=== PATIENT | female | born 1975 | race Hispanic/Latino ===

== ENCOUNTER 2017-08-19 14:25 | Outpatient (CLI) | payer OTHER ==
--- NOTE | 2017-08-19 15:24 | ULT ---
RENAL SONOGRAM: DATE: 08/19/17. HISTORY: Right flank pain. FINDINGS: The kidneys demonstrate a normal sonographic appearance bilaterally without evidence of a renal mass, renal calculus, or hydronephrosis. The right kidney measures 10.2 cm x 4.3 cm with the left kidney measuring 10.3 cm x 6.1 cm. The urinary bladder is distended and demonstrates a normal sonographic appearance. Prevoid urinary b ladder volume is 398.8 mL, and there is no evidence of a postvoid residual. IMPRESSION: Normal-appearing bilateral kidneys as well as normal-appearing urinary bladder. POS: [facility]
== END 2017-08-19 14:26 | disposition home or self-care (01) ==
LOC: SCSULT 14:25
PROVIDERS: ATTEND Family Medicine
DX: R10.9 Unspecified abdominal pain (principal)
CPT/HCPCS: 76770

== ENCOUNTER 2018-03-18 13:23 | Outpatient (CLI) | payer OTHER | END 2018-03-18 13:24 | disposition home or self-care (01) | LOC: BICMAMMO 13:23 | PROVIDERS: ATTEND Family Medicine | DX: Z12.31 Encounter for screening mammogram for malignant neoplasm of breast (principal); R92.1 Mammographic calcification found on diagnostic imaging of breast; Z80.3 Family history of malignant neoplasm of breast; Z98.890 Other specified postprocedural states | CPT/HCPCS: 77063; 77067 ==

== ENCOUNTER 2018-03-30 12:42 | Inpatient (IN) | payer OTHER ==
[~2018-03-30 12:42] MED LIST: Dexamethasone 20 MG/5 ML VIAL ONE; Glycopyrrolate 0.2 MG/ML 5 ML SYRINGE ONE; Ketorolac Tromethamine 30 MG/ML VIAL ONE; Lidocaine 1% PF 5 ML VIAL ONE; Ondansetron PF 4 MG/2 ML Vial ONE; PROPOFOL 200 MG/20 ML VIAL ONE; Rocuronium Bromide 10 MG/ML (10ML VIAL) ONE; Succinylcholine Chloride 20 MG/ML 10 ml SYRINGE FS ONE
[2018-03-30] MEDS ORDERED: Morphine 2 MG/ML SYRINGE ONE (13:22)
[2018-03-30] MEDS ORDERED: Iopamidol 370 76% 50 ML VIAL FS ONE (13:22)
[2018-03-30] MEDS ORDERED: ISOVUE-370 76%-LOCM 1 ML ONE (13:22)
[2018-03-30] MEDS ORDERED: Ondansetron PF 4 MG/2 ML Vial ONE ×2 (13:22→20:18)
[2018-03-30 14:11] LABS: #Eosinphils 0.1 thou/uL (0.0-0.7); #Lymphocytes 1.9 thou/uL (1.20-3.40); #Monocytes 1.6 thou/uL (0.11-0.59); #Neutrophils 16.4 thou/uL (1.40-6.50); %Basophils 0.2 % (0.0-1.0); %Eosinophils 0.3 % (0.0-10.0); %Lymphocytes 9.6 % (21.0-51.0); %Monocytes 7.9 % (0.0-10.0); Mean Corpuscular HGB CONC 34.7 g/dL (32.0-36.0); Mean Corpuscular Hemoglobin 33.7 pg (27.0-31.0); Mean Platelet Volume 7.3 fL (7.4-10.4); Platelet Count 242 thou/uL (130-400); RBC Distribution Width 11.5 % (11.5-14.5); Red Blood Cell (RBC) Count 4.17 mill/uL (4.20-5.40); White Blood Cell (WBC) Count 19.9 thou/uL (4.8-10.8)
[2018-03-30 14:30] LABS: ALT (SGPT) 10 U/L (8-55); AST (SGOT) 14 U/L (5-34); Alkaline Phosphatase 77 U/L (40-150); Anion Gap 13 mmol/L (10-20); BUN (Urea Nitrogen) 8 mg/dL (7.0-18.7); Bilirubin, Total 0.9 mg/dL (0.2-1.2); Calc. Creatinine Clearance 0 mL/min (70-130); Calcium 9.5 mg/dL (7.8-10.44); Carbon Dioxide 27 mmol/L (22-29); Chloride 98 mmol/L (98-107); Estimated GFR-MDRD Greater than 90; Globulin 3.4 g/dL (2.4-3.5); Glucose 74 mg/dL (70-105); Lipase Less than 4 U/L (8-78); Potassium 3.5 mmol/L (3.5-5.1); Protein, Total 7.4 g/dL (6.0-8.3); Sodium 134 mmol/L (136-145)
[2018-03-30 14:33] LABS: Bacteria/HPF Rare-Few HPF (None Seen); Bilirubin Small (Negative); Blood, Urine Trace (Negative); Clarity CLOUDY (Clear); Glucose, Urine (Dipstick) Negative (Negative); Hyaline Casts/LPF 7-10 HYALINE CAST LPF (0-3 Hyaline); Leukocyte Trace (Negative); Nitrite Negative (Negative); Pathc Cast-AUWi Flag 0.72 (0-2.49); Pregnancy Test - Urine (BHCG) Negative (Negative); Pregu Control Background? CLEAR/WHITE (CLR/WHITE); Pregu Control Bar Appear? YES (CONTROL BAR); Protein, Urine (Dipstick) 30 mg/dL (Neg-Trace); Specific Gravity 1.023 (1.002-1.036); Specific Gravity, Urine 1.023 (1.002-1.036)
[2018-03-30] MEDS ORDERED: Fentanyl 100 MCG/2 ML VIAL ONE ×2 (15:16→17:45)
[2018-03-30] MEDS ORDERED: Piperacillin/Tazobactam 4.5 GM VIAL ONE (16:33)
[2018-03-30] MEDS ORDERED: Morphine 4 MG/ML VIAL ONE (16:34)
--- NOTE | 2018-03-30 16:48 | CT ---
CT ABDOMEN WITH CONTRAST CT PELVIS WITH CONTRAST: DATE: 03-30-18 TIME: 3:25 P.M. HISTORY: 42-year-old female with low abdominal pain. Rule out small bowel obstruction. COMPARISON: None. TECHNIQUE: IV injection of iodinated contrast media: 100 ml Isovue 370 Oral contrast media: PO Isovue FINDINGS: Diffuse dilation of the intrahepatic biliary tree, probably due to status post cholecystectomy. Clips in the gallbladder fossa. Otherwise normal liver, abdominal aorta, bilateral kidneys, pancreas, and spleen. The appendix is fluid filled and mildly dilated to a caliber of 7 mm, and has enhancing goodson . There is periappendiceal edema, and a tiny amount of periappendiceal fluid. The right adrenal gland is normal. There is an approximately 2 x 2.2 x 2.3 cm well circumscribed mass directly superior to t he left kidney, abutting the superior cortical surface of the left kidney. It abuts the medial limb o f the left adrenal gland, but the rest of the left adrenal gland is normal. The density of this mass is approximately 57 HU. No small bowel dilation. Urinary bladder has normal, thin goodson. There is dif fuse mural thickening of the sigmoid colon. There is generalized fat stranding with edema throughout the pelvic cavity. There are complex fluid collections within the pelvic cavity centrally and right a nd left paracentrally, indenting the dome of the urinary bladder. This is distant from the appendix ( the appendix is retrocecal). One of the round locules of fluid slightly to the right of midline measu res approximately 4 x 4.5 x 3 cm. The fluid to the right and left of this is less well organized, and it is uncertain whether these other ones are free or loculated. IMPRESSION: 1. Two separate inflammatory processes occurring. 2. One is an acute appendicitis involving retrocecal appendix. 3. The other is extensive edema within the pelvic cavity, including what appears to be one or more in trapelvic abscess, perhaps tubo-ovarian abscess. 4. Recommend both general surgical consultation and MACHINE BOSS consultation. 5. No small bowel obstruction. MIR Shah POS: [facility]
[2018-03-30] MEDS ORDERED: HYDROmorphone 2 MG/ML VIAL ONE (17:45)
[2018-03-30] MEDS ORDERED: Fentanyl 250 MCG/5 ML VIAL ONE (17:45)
--- NOTE | 2018-03-30 17:59 | HP ---
CHIEF COMPLAINT: Abdominal pain. HISTORY OF PRESENT ILLNESS: Ms. Ward is a 42-year-old woman with complicated past gynecologic history, who presented to the hospital with a 3-day history of lower abdominal pain, worse on the left than the right. She states that she woke up morning with severe abdominal pain. She has had similar episodes in the past, which were attributed to gas, so she tried to tough it out at home and treat it with heating pad and ice, but the pain was not getting better. She had multiple episodes of nausea and vomiting and could not hold down anything that she tried to eat or drink. She was not running any fevers, but the pain was continuing to get worse, so today she decided to come into the emergency room. Her last bowel movement was morning and was small and loose. She gave herself an enema today thinking that might help, but did not have much results. PAST MEDICAL HISTORY: Endometriosis. PAST SURGICAL HISTORY: Hysterectomy, unilateral oophorectomy, and laparoscopic cholecystectomy. FAMILY HISTORY: Noncontributory. No history of ovarian cancer. ALLERGIES: SHE HAS AN ALLERGY TO PENICILLIN, BUT RECENTLY UNDERWENT ALLERGY TESTING AND DID NOT HAVE ANY REACTIONS TO PENICILLIN. OUTPATIENT MEDICATIONS: Include Zoloft, Adderall, and Wellbutrin, but she has not taken any medications in the past week. REVIEW OF SYSTEMS: Ten-system review of systems is negative except per HPI. The patient cannot identify anything that makes the pain better or worse. It is crampy, and waxes and wanes somewhat, but it is constant since its onset. No vaginal discharge, no blood in her stool, and no blood in her emesis. Pain is worse in the left lower quadrant greater than right lower quadrant. It does not radiate and it has been in the same spot since its onset. LABORATORY DATA: White count is elevated at 19,000 with a left shift, hematocrit 40, and platelets 242. Electrolytes and LFTs are unremarkable. Lipase is less than 4. Urine has ketones and trace blood and 30 protein. It is contaminated with 11 to 20 squamous cells, but has rare to few bacteria and only 7 to [address] images are reviewed with radiologist and with the credit administrator. The patient has what appears to be an early acute appendicitis with inflammation, but no periappendiceal fluid or abscess. She does not have any free fluid in the abdomen, but she has a complex mass in the pelvis, which measures about 7 cm with several cystic components, and she has diffuse mural thickening of the sigmoid colon, but the complex fluid collection does not appear to connect to the sigmoid and it is distant from the appendix. ASSESSMENT: Pelvic inflammatory process and acute appendicitis. The etiology of the pelvic inflammatory process is not clear. The acute onset and severity of the pain are suggestive of ovarian torsion and this could be an advanced ovarian torsion with necrotic ovary. Endometrioma is also within the differential diagnosis. Ovarian cancer was considered, but does not seem to fit the clinical picture or the radiologic appearance and is felt to be unlikely. Other possibilities from a general surgical standpoint include a pelvic abscess related to diverticulitis or colitis. This appears unlikely given the fairly well demarcated nature of the mass with solid and cystic components, however, this cannot be ruled out entirely. The sigmoid colon is inflamed in appearance, but it is felt that this could be secondary to the pelvic inflammatory process and not the cause of it. After discussing the possible etiologies of the pelvic process and treatment options, the recommendation was made to proceed with laparoscopic appendectomy and evaluation of the pelvic mass. If this is felt to be endometrioma or a torsed ovary, then excision would be recommended. According to Dr. Duran of Gynecology, this could be quite technically challenging, could require open surgery. If the process appears malignant, then she would likely need to be referred on. If it appears to be an infectious process related to the colon, then drainage of the infection with or without colectomy and colostomy would be recommended. The patient is in agreement with the plan. She has been started on Zosyn by the ER physician and she has been posted for the operating room. Inherent risks of the surgery were discussed in detail. These include, but are not limited to, bleeding, infection, risks of anesthesia, damage to nearby structures including bowel, bladder, ureter, and blood vessels, need for other procedures, need for open surgery, and need for colostomy. She understands, accepts these risks, and wishes to proceed. All of her questions were answered. Job ID: [id number]
[2018-03-30] MEDS ORDERED: Bupivacaine HCl 0.25%/Epi 0.0005/PF 10 ML VIAL FS ONE ×2 (18:35)
[2018-03-30] MEDS ORDERED: Piperacillin/Tazobactam 3.375 GM VIAL ONE (18:37)
[2018-03-30] MEDS ORDERED: Promethazine HCl 25 MG/ML VIAL IM PRN (19:17)
[2018-03-30] MEDS ORDERED: HYDROmorphone 2 MG/ML VIAL SLOW IVP PRN (19:17)
[2018-03-30] MEDS ORDERED: Ondansetron HCl/PF 4 MG/2 ML Vial IVP PRN (19:17)
[2018-03-30] MEDS ORDERED: Ketorolac Tromethamine 30 MG/ML VIAL IVP PRN ×2 (19:17→20:24)
[2018-03-30] MEDS ORDERED: Meperidine HCl/PF 25 MG/ML VIAL SLOW IVP PRN (19:17)
[2018-03-30] MEDS ORDERED: Morphine Sulfate 2 MG/ML SYRINGE SLOW IVP PRN (19:17)
[2018-03-30] MEDS ORDERED: PACU-Morphine 4MG/ML VIAL SLOW IVP PRN (19:17)
[2018-03-30] MEDS ORDERED: Promethazine HCl 25 MG/ML VIAL SLOW IVP PRN (19:17)
[2018-03-30] MEDS ORDERED: HYDROcodone/Acetaminophen 7.5/325 mg Tablet PO PRN (20:15)
[2018-03-30] MEDS ORDERED: Acetaminophen 325 MG TAB PO PRN ×2 (20:16→20:17)
[2018-03-30] MEDS ORDERED: Ibuprofen 200 MG TAB PO PRN ×4 (20:18→20:57)
[2018-03-30] MEDS ORDERED: Promethazine 25 MG TAB PO PRN ×3 (20:21→20:58)
[2018-03-30] MEDS ORDERED: Morphine 4 MG/ML VIAL SLOW IVP PRN ×3 (20:22→20:59)
[2018-03-30] MEDS ORDERED: Ondansetron PF 4 MG/2 ML Vial SLOW IVP PRN (20:23)
[2018-03-30] MEDS: Sodium Chloride 0.9% 1,000 ML IV SCH (21:38)
[2018-03-30 22:37] VITALS: BMI 30.5
--- NOTE | 2018-03-30 23:30 | HP ---
CHIEF COMPLAINT: Abdominal pain x4 days. HISTORY OF PRESENT ILLNESS: Ms. Ward is a 42-year-old and G3 , P3 with a history of vaginal history of robotic hysterectomy with unilateral salpingo-oophorectomy, who presents to the ER complaining of progressive abdominal pain with nausea and vomiting over the last 4 days. I was asked to see the patient by the ER physician and by Dr. Vieira. Her CT scan shows a 7 cm inflamed appearing mass that is deep in the pelvis. There is also a coexistent early acute appendicitis. PAST OBSTETRICAL HISTORY: Includes 3 reportedly uncomplicated vaginal deliveries. She states that she had a robotic hysterectomy by Dr. Schultz and that she had a single ovary removed at that time leaving the other ovary in situ. She does state that endometriosis was seen at the time of her surgery. PAST MEDICAL HISTORY: Includes anxiety. PAST SURGICAL HISTORY: Includes robotic hysterectomy as above and cholecystectomy. She also reports what sounds like laparoscopic treatment of ovarian cyst in the past. CURRENT MEDICATIONS: Include Prozac and Wellbutrin. ALLERGIES: NO KNOWN ALLERGIES. SOCIAL HISTORY: She smokes half a package of cigarettes per day. She drinks occasionally. She denies drug use. FAMILY HISTORY: Remarkable for ovarian cancer in a distant aunt. REVIEW OF SYSTEMS: Positive for nausea and vomiting. She denies fever or chills. She denies vaginal bleeding. PHYSICAL EXAMINATION: VITAL SIGNS: Stable and she is afebrile in the emergency room. ABDOMEN: Nondistended, but she is tender to deep palpation. PELVIC: Deferred. LABORATORY DATA: White count of 19.9 with a hemoglobin of 14, hematocrit of 40.5, and a platelet count of 242,000. Her CT scan is discussed with the radiologist. Two separate inflammatory processes are reported. An acute appendicitis that is retrocecal is seen and there is a 7 cm mass in the pelvic cavity with extensive edema. There is no evidence of bowel obstruction. ASSESSMENT: 1. Acute appendicitis. 2. Pelvic mass. PLAN: Plan at this time is to proceed to the OR with Dr. Vieira. The diagnostic possibilities have been discussed with the patient and she understands that this includes the possibility of an ovarian torsion, possible endometrioma, or even an early ovarian cancer, although this is less likely in the absence of a large amount of peritoneal fluid and omental caking. She understands that we will proceed and remove this mass either laparoscopically or possibly even requiring an open technique. The risks of the procedure including anesthesia, bleeding, infection , as well as damage to adjacent organs requiring repair, removal, or transfusion have been discussed with her in detail and she wishes to proceed. Job ID: [id number] MTDD
[2018-03-31] MEDS: HYDROcodone/Acetaminophen 7.5/325 mg Tablet PO PRN ×3 (00:19→11:33)
--- NOTE | 2018-03-31 00:42 | OP ---
DATE OF PROCEDURE: 03/30/2018 OPERATIVE NOTE: I was present to assist Dr. Vieira with his procedure. During this laparoscopic case, it could be seen that this patient had an reactively inflamed appendix and a portion of the left ovary and tube. Both appendectomy and removal of torsion were performed by Dr. Vieira. I was present to assist. The pelvis was thoroughly irrigated. A midline incision was closed under direct vision using 0 Vicryl. The smaller incisions were closed subcuticularly. The larger incision was also closed with 3-0 Monocryl in a subcuticular fashion. The skin was also closed using Dermabond. Sponge, lap, and needle counts were correct. Delgado had been placed and this was removed at the end of the case. The patient will be observed in the recovery room and will go home either tonight or in the morning. The operative findings were related to her in the waiting area. Job ID: [id number]
[2018-03-31] MEDS ORDERED: Simethicone Chewable 80 MG TAB PO PRN (06:57)
[2018-03-31] MEDS: Sodium Chloride 0.9% 1,000 ML IV SCH (07:16)
[2018-03-31] MEDS ORDERED: Polyethylene Glycol 3350 17 GM Packet PO SCH (09:00)
[2018-03-31] MEDS ORDERED: Docusate 100 MG CAP PO SCH (09:00)
[2018-03-31 10:36] LABS: Hemoglobin 11.4 g/dL (12.0-16.0); Mean Corpuscular HGB CONC 33.2 g/dL (32.0-36.0); Mean Corpuscular Hemoglobin 32.4 pg (27.0-31.0); Mean Corpuscular Volume 97.8 fL (78.0-98.0); Mean Platelet Volume 7.6 fL (7.4-10.4); Platelet Count 230 thou/uL (130-400); RBC Distribution Width 11.6 % (11.5-14.5); Red Blood Cell (RBC) Count 3.52 mill/uL (4.20-5.40); White Blood Cell (WBC) Count 20.3 thou/uL (4.8-10.8)
[2018-03-31 10:41] LABS: Anion Gap 12 mmol/L (10-20); BUN (Urea Nitrogen) 9 mg/dL (7.0-18.7); Calc. Creatinine Clearance 123 mL/min (70-130); Calcium 8.7 mg/dL (7.8-10.44); Carbon Dioxide 23 mmol/L (22-29); Chloride 106 mmol/L (98-107); Estimated GFR-MDRD 90; Glucose 144 mg/dL (70-105); Potassium 4.4 mmol/L (3.5-5.1); Sodium 137 mmol/L (136-145)
[2018-03-31 10:56] LABS: Band 7 % (5-11); Eosinophils 1 % (0-10); Lymphocytes 4 % (21-51); MDiff Complete? YES; Monocytes 3 % (0-10); Neutrophil 85 % (42-75); RBC Morphology Normal
[2018-03-31 12:13] VITALS: BP 101/67; TEMP 98.2
== END 2018-03-31 13:57 | disposition home or self-care (01) | DRG 343 ==
LOC: ERS 12:42 → SDC/OP 18:06 → SURG A 20:01
PROVIDERS: ADMIT Surgery; ATTEND Surgery
PROC: 0DTJ4ZZ Resection of Appendix, Percutaneous Endoscopic Approach (ICD-10-PCS; principal; 2018-03-30)
PROC: 0UT14ZZ Resection of Left Ovary, Percutaneous Endoscopic Approach (ICD-10-PCS; 2018-03-30)
DX: K35.80 Unspecified acute appendicitis (principal); N73.9 Female pelvic inflammatory disease, unspecified; F41.9 Anxiety disorder, unspecified; F17.210 Nicotine dependence, cigarettes, uncomplicated; Z90.710 Acquired absence of both cervix and uterus; Z90.721 Acquired absence of ovaries, unilateral; Z90.49 Acquired absence of other specified parts of digestive tract
CPT/HCPCS: 36415; 74177; 80048; 80053; 81003; 81015; 81025; 83690; 85025; 88304; 88307; 90471; 90732; 96361; 96365; 96375; 96376; G0009; J1100; J1170; J1885; J2001; J2270; J2405; J2543; J2704; J3010; Q0169; Q9966; Q9967

== ENCOUNTER 2019-04-03 13:29 | Emergency (ER) | payer OTHER ==
[2019-04-03 13:58] LABS: #Eosinphils 0.1 thou/uL (0.0-0.7); #Monocytes 0.6 thou/uL (0.11-0.59); #Neutrophils 6.1 thou/uL (1.40-6.50); %Basophils 0.5 % (0.0-1.0); %Eosinophils 0.9 % (0.0-10.0); %Lymphocytes 30.1 % (21.0-51.0); %Monocytes 6.2 % (0.0-10.0); %Neutrophils 62.3 % (42.0-75.0); Hemoglobin 16.1 g/dL (12.0-16.0); Mean Corpuscular HGB CONC 34.4 g/dL (32.0-36.0); Mean Corpuscular Hemoglobin 33.1 pg (27.0-31.0); Mean Corpuscular Volume 96.1 fL (78.0-98.0); Mean Platelet Volume 7.2 fL (7.4-10.4); Platelet Count 263 thou/uL (130-400); RBC Distribution Width 11.6 % (11.5-14.5); Red Blood Cell (RBC) Count 4.86 mill/uL (4.20-5.40); White Blood Cell (WBC) Count 9.9 thou/uL (4.8-10.8)
--- NOTE | 2019-04-03 13:59 | RAD ---
PORTABLE CHEST: Date: 04/03/2019 HISTORY: Chest pain. FINDINGS: Heart size and mediastinum are within normal limits. Lungs are clear of infiltrates. No significant b ledy findings. IMPRESSION: No active intrathoracic disease. POS: [facility]
[2019-04-03 14:19] LABS: ALT (SGPT) 13 U/L (8-55); AST (SGOT) 24 U/L (5-34); Albumin 4.8 g/dL (3.5-5.0); Alkaline Phosphatase 103 U/L (40-110); Anion Gap 13 mmol/L (10-20); BUN (Urea Nitrogen) 13 mg/dL (7.0-18.7); Bilirubin, Total 0.7 mg/dL (0.2-1.2); CK (CPK) 92 U/L (29-168); Calc. Creatinine Clearance 0 mL/min (70-130); Carbon Dioxide 29 mmol/L (22-29); Chloride 102 mmol/L (98-107); Estimated GFR-MDRD 69; Globulin 2.9 g/dL (2.4-3.5); Glucose 79 mg/dL (70-105); Potassium 4.2 mmol/L (3.5-5.1); Protein, Total 7.7 g/dL (6.0-8.3); Sodium 140 mmol/L (136-145)
== END 2019-04-03 16:18 | disposition home or self-care (01) ==
LOC: ERS 13:29
DX: F41.9 Anxiety disorder, unspecified (principal); R07.9 Chest pain, unspecified; F17.210 Nicotine dependence, cigarettes, uncomplicated; Z79.899 Other long term (current) drug therapy
CPT/HCPCS: 36415; 71045; 80053; 82550; 84484; 85025; 85379; 93005

== ENCOUNTER 2020-04-01 12:11 | Outpatient (CLI) | payer OTHER | END 2020-04-01 12:12 | disposition home or self-care (01) | LOC: BICMAMMO 12:11 | PROVIDERS: ATTEND Family Medicine | DX: Z12.31 Encounter for screening mammogram for malignant neoplasm of breast (principal) | CPT/HCPCS: 77063; 77067 ==

== ENCOUNTER 2021-07-09 14:45 | Emergency (ER) | payer OTHER | END 2021-07-09 15:09 | disposition left against medical advice (07) | LOC: ERS 14:45 | DX: Z53.21 Procedure and treatment not carried out due to patient leaving prior to being seen by health care provider (principal) ==

== ENCOUNTER 2022-01-01 13:01 | Outpatient (CLI) | payer OTHER | END 2022-01-01 13:02 | disposition home or self-care (01) | LOC: BICMAMMO 13:01 | PROVIDERS: ATTEND Family Medicine | DX: Z12.31 Encounter for screening mammogram for malignant neoplasm of breast (principal); Z86.018 Personal history of other benign neoplasm | CPT/HCPCS: 77063; 77067 ==

== ENCOUNTER 2023-01-31 14:06 | Outpatient (CLI) | payer OTHER | END 2023-01-31 14:07 | disposition home or self-care (01) | LOC: BICMAMMO 14:06 | PROVIDERS: ATTEND Family Medicine | DX: Z12.31 Encounter for screening mammogram for malignant neoplasm of breast (principal) | CPT/HCPCS: 77063; 77067 ==